=== PATIENT | male | born 1960 | race Caucasian/White ===

== ENCOUNTER 2016-10-24 13:58 | Observation (INO) | payer OTHER ==
[~2016-10-24] VITALS: Ht 172.7 cm; Wt 94.1 kg
[~2016-10-24 13:58] MED LIST: ECOTRIN325 MG PO; GLIPIZIDE5 M1 PO; IMDUR60 MG PO; LANSOPRAZOLE30 M1 PO; LANTUS 3 M100 UNITS1 SC; LANTUS100 UNIT/1 SQ; LIPITOR80 MG PO; LISINOPRIL10 MG PO; METFORMIN HCL500 MG PO; PLAVIX75 MG PO; TOPROL XL50 MG PO; VALIUM10 MG PO
[2016-10-24] MEDS ORDERED: METFORMIN HCL1000 MG PO (15:04)
[2016-10-24] MEDS ORDERED: LANTUS 10100 UNITS/ SC (15:05)
[2016-10-24 15:13] LABS: HEMATOCRIT 47.4 % (38.0-50.0); MCV 88.6 FL (86-99); MEAN PLAT.VOLUME 9.1 uM^3 (9.0-12.4); PLATELET COUNT 217 K/uL (156-360); RBC DIS.WIDTH-CV 14.8 % (11.8-14.6); RBC DIS.WIDTH-SD 47.6 % (39-53); RED BLOOD COUNT 5.35 M/uL (4.00-5.50)
[2016-10-24 15:22] LABS: CHLORIDE 104 mEq/L (99-109); SODIUM 137 mEq/L (136-147)
[2016-10-24 15:24] LABS: GLUCOSE 84 mg/dL (70-99)
[2016-10-24 15:25] LABS: ANION GAP 10 MEQ/L (2-14)
[2016-10-24 15:28] LABS: GFR ESTIMATE (CALCULATED) > 59 mL/min/
[2016-10-24 15:29] LABS: UREA NITROGEN (BUN) 10 mg/dL (9-23)
[2016-10-24 15:33] LABS: TROP-I INTERPRETATION NEGATIVE; TROPONIN-I < 0.01 ng/mL (0.0-0.30)
[2016-10-24] MEDS ORDERED: LISINOPRIL2.5 MG PO (17:16)
[2016-10-24] MEDS ORDERED: PREVACID15 MG PO (17:17)
[2016-10-24 20:10] VITALS: BP 123/72
[2016-10-24 21:39] LABS: TOTAL BILIRUBIN 0.4 mg/dL (0.0-1.0)
[2016-10-24 21:40] LABS: ALKALINE PHOSPHATASE 62 IU/L (3-129)
[2016-10-24 21:43] LABS: DIRECT BILIRUBIN 0.2 mg/dL (0.0-0.3)
[2016-10-24 21:44] LABS: LIPASE 195 U/L (1.0-51.0)
[2016-10-24 21:48] LABS: TROP-I INTERPRETATION NEGATIVE; TROPONIN-I < 0.01 ng/mL (0.0-0.30)
[2016-10-25 00:28] VITALS: BP 118/76
[2016-10-25 04:27] LABS: ADD MIUA? NO; BILIRUBIN NEGATIVE; BLOOD NEGATIVE; COLOR YELLOW ((YELLOW)); GLUCOSE (STRIP) >=1000; KETONES NEGATIVE; LEUKOCYTES NEGATIVE; NITRITE NEGATIVE; PROTEIN (STRIP) NEGATIVE; SPECIFIC GRAVITY 1.019 (1.000-1.030); UROBILINOGEN 0.2 MG/DL (0.2-1.0)
[2016-10-25 04:43] LABS: HEMATOCRIT 45.7 % (38.0-50.0); MCH 30.5 PG (29.0-34.0); MCHC 34.1 G/DL (30.0-36.0); MCV 89.4 FL (86-99); MEAN PLAT.VOLUME 9.7 uM^3 (9.0-12.4); PLATELET COUNT 200 K/uL (156-360); RBC DIS.WIDTH-CV 14.9 % (11.8-14.6); RBC DIS.WIDTH-SD 48.2 % (39-53); RED BLOOD COUNT 5.11 M/uL (4.00-5.50); WHITE BLOOD COUNT 9.9 K/uL (4.1-10.2)
[2016-10-25 04:55] LABS: CHLORIDE 103 mEq/L (99-109); POTASSIUM 4.1 mEq/L (3.7-5.4); SODIUM 134 mEq/L (136-147)
[2016-10-25 04:58] LABS: ANION GAP 9 MEQ/L (2-14)
[2016-10-25 05:00] LABS: GFR ESTIMATE (CALCULATED) > 59 mL/min/
[2016-10-25 05:01] LABS: UREA NITROGEN (BUN) 12 mg/dL (9-23)
[2016-10-25 05:03] LABS: GLUCOSE 204 mg/dL (70-99)
[2016-10-25 05:14] LABS: TROP-I INTERPRETATION NEGATIVE; TROPONIN-I < 0.01 ng/mL (0.0-0.30)
[2016-10-25 07:55] VITALS: BP 141/65
[2016-10-25 11:48] VITALS: BP 116/67
[2016-10-25 12:10] LABS: POINT-OF-CARE METER ID UU13113831
== END 2016-10-25 15:35 | disposition home or self-care (01) ==
LOC: EME 13:58 → EDOF 18:16 → 5WEST 19:37
PROVIDERS: Emergency Medicine; Hospitalist; Internal Medicine
DX: K85.90 Acute pancreatitis without necrosis or infection, unspecified (principal); R10.13 Epigastric pain; R07.9 Chest pain, unspecified; R14.0 Abdominal distension (gaseous); J44.1 Chronic obstructive pulmonary disease with (acute) exacerbation; I25.10 Atherosclerotic heart disease of native coronary artery without angina pectoris; Z95.5 Presence of coronary angioplasty implant and graft; E11.65 Type 2 diabetes mellitus with hyperglycemia; I10 Essential (primary) hypertension; E78.5 Hyperlipidemia, unspecified; N20.0 Calculus of kidney; F17.200 Nicotine dependence, unspecified, uncomplicated; Z85.828 Personal history of other malignant neoplasm of skin; Z82.49 Family history of ischemic heart disease and other diseases of the circulatory system; Z82.0 Family history of epilepsy and other diseases of the nervous system; Z83.3 Family history of diabetes mellitus; Z80.0 Family history of malignant neoplasm of digestive organs; Z91.041 Radiographic dye allergy status; Z88.8 Allergy status to other drugs, medicaments and biological substances
CPT/HCPCS: 71010; 74176; 80048; 80076; 81003; 82948; 83690; 84484; 85027; 93005; 99202; 99281; 99284; G0378; J1815; J7030